=== PATIENT | female | born 1980 | race Caucasian/White ===

== ENCOUNTER → 2016-09-14 | Outpatient (CLI) | payer OTHER ==
[~2016-09-14] MED LIST: CHOL20002 PO; EMPA1TAB3 PO; INSU100V5 SQ-INSULIN; LISI-167 PO; NPH,100V4 SQ-INSULIN; RIVA20TA PO; SIMV20TA3 PO; VALA500T4 PO
[2016-09-14 14:49] LABS: BLOOD UREA NITROGEN 20 mg/dL (7-18)
[2016-09-14 14:53] LABS: ASPARTATE AMINO TRANSFERASE 38 U/L (15-37)
== END | disposition home or self-care (01) ==
LOC: STAR 13:12
PROVIDERS: ATTEND Obstetrics & Gynecology
DX: Z01.818 Encounter for other preprocedural examination (principal); N92.0 Excessive and frequent menstruation with regular cycle
CPT/HCPCS: 36415; 80053; 93005

== ENCOUNTER 2016-10-05 05:23 | Day surgery (SDC) | payer OTHER ==
[~2016-10-05] VITALS: Ht 175.3 cm; Wt 98.0 kg
[2016-10-05] MEDS ORDERED: LACTATED RINGERS 1,000 ML IV SCH (05:41)
[2016-10-05 06:30] LABS: HCG UR OBC PASS
[2016-10-05] MEDS ORDERED: EPINEPHRINE 1 MG/ML, 1ML ONE (07:01)
[2016-10-05] MEDS ORDERED: BUPIVACAINE/PF-EPI 0.5% 1:200K ONE (07:02)
[2016-10-05] MEDS ORDERED: BUPIVACAINE/PF 0.25% ONE (07:02)
[2016-10-05] MEDS ORDERED: SILVER NITRATE STICK TP ONE (07:02)
[2016-10-05] MEDS ORDERED: SCOPOLAMINE PATCH, 1.5MG PATCH.TD72 TD ONE ×2 (07:06→07:30)
[2016-10-05] MEDS ORDERED: MIDAZOLAM 1 MG/ML, 2ML ONE (07:12)
[2016-10-05] MEDS ORDERED: FENTANYL PF 250 MCG/5ML ONE (07:12)
[2016-10-05] MEDS ORDERED: PROPOFOL 10 MG/ML, 20ML ONE (07:29)
[2016-10-05] MEDS ORDERED: ONDANSETRON 2MG/ML, 2ML ONE (07:29)
[2016-10-05] MEDS ORDERED: NEOSTIGMINE 1 MG/ML, 10ML ONE (07:29)
[2016-10-05] MEDS ORDERED: ROCURONIUM 10 MG/ML ONE (07:29)
[2016-10-05] MEDS ORDERED: GLYCOPYRROLATE 0.2MG/1ML ONE (07:29)
[2016-10-05] MEDS ORDERED: CEFAZOLIN 1,000 MG ONE (07:29)
[2016-10-05] MEDS ORDERED: LABETALOL 5MG/ML, 20ML IV PRN (08:00)
[2016-10-05] MEDS ORDERED: MEPERIDINE/PF 25MG/0.5ML IVPush PRN (08:00)
[2016-10-05] MEDS ORDERED: ACETAMINOPHEN 325 MG TABLET PO PRN (08:00)
[2016-10-05] MEDS ORDERED: ONDANSETRON 2MG/ML, 2ML IVPush PRN (08:00)
[2016-10-05] MEDS ORDERED: EPHEDRINE 50 MG/ML, 1ML IVPush PRN (08:00)
[2016-10-05] MEDS ORDERED: ALBUTEROL SULFATE 2.5 MG/3 ML NPPB PRN (08:00)
[2016-10-05] MEDS ORDERED: hydrALAzine 20 MG/ML, 1ML IV PRN (08:00)
[2016-10-05] MEDS ORDERED: OXYcodone 5 MG/5 ML ORAL.SOL UDC PO PRN (08:00)
[2016-10-05] MEDS ORDERED: METOPROLOL 1 MG/ML, 5ML IV PRN (08:00)
[2016-10-05] MEDS ORDERED: HYDROmorphone 1 MG/ML, 1ML IV PRN (08:00)
[2016-10-05] MEDS ORDERED: HYDROcodone/APAP 7.5-325MG/15ML UDC ONE (08:50)
[2016-10-05] MEDS ORDERED: FENTANYL PF 100 MCG/2ML ONE (08:55)
[2016-10-05] MEDS: FENTANYL PF 100 MCG/2ML IV PRN ×2 (08:56→09:02)
[2016-10-05] MEDS ORDERED: HYDROcodone/APAP 7.5-325MG/15ML UDC PO PRN ×2 (09:00→10:00)
[2016-10-05] MEDS ORDERED: HYDROcodone/APAP 7.5-325MG/15ML UDC PO ONE (10:02)
== END 2016-10-05 11:25 ==
LOC: OUT 05:23
PROVIDERS: ATTEND Obstetrics & Gynecology
DX: N93.9 Abnormal uterine and vaginal bleeding, unspecified (principal); Z30.2 Encounter for sterilization; Z30.432 Encounter for removal of intrauterine contraceptive device; I10 Essential (primary) hypertension; E11.9 Type 2 diabetes mellitus without complications; E78.00 Pure hypercholesterolemia, unspecified; E66.9 Obesity, unspecified; Z68.32 Body mass index [BMI] 32.0-32.9, adult; Z86.711 Personal history of pulmonary embolism; Z98.890 Other specified postprocedural states; Z72.89 Other problems related to lifestyle; Z79.4 Long term (current) use of insulin
CPT/HCPCS: 58301; 58563; 58661; 81025; 82962; 88302; 88305; J0690; J2250; J2405; J2704; J2710; J3010; J7120; J0171; J3490